=== PATIENT | female | born 1990 | race Caucasian/White ===

== ENCOUNTER 2019-03-11 14:34 | Outpatient (CLI) | payer OTHER | END 2019-03-11 15:45 | disposition home or self-care (01) | LOC: PRENATAL 14:34 | DX: O35.3XX1 Maternal care for (suspected) damage to fetus from viral disease in mother, fetus 1 (principal) ==

== ENCOUNTER 2019-07-07 06:51 | Inpatient (IN) | payer OTHER ==
[~2019-07-07] VITALS: Ht 160 cm; Wt 75.7 kg
== END 2019-07-09 15:24 | disposition home or self-care (01) | DRG 807 ==
LOC: OB/GYN 06:51 → LDR 06:51 → OB/GYN 07-08 00:21
PROVIDERS: ADMIT Obstetrics & Gynecology
PROC: 10E0XZZ Delivery of Products of Conception, External Approach (ICD-10-PCS; principal; 2019-07-07)
PROC: 3E033VJ Introduction of Other Hormone into Peripheral Vein, Percutaneous Approach (ICD-10-PCS; 2019-07-07)
PROC: 10907ZC Drainage of Amniotic Fluid, Therapeutic from Products of Conception, Via Natural or Artificial Opening (ICD-10-PCS; 2019-07-07)
PROC: 4A1HXCZ Monitoring of Products of Conception, Cardiac Rate, External Approach (ICD-10-PCS; 2019-07-07)
DX: O80 Encounter for full-term uncomplicated delivery (principal); Z37.0 Single live birth; Z3A.39 39 weeks gestation of pregnancy